=== PATIENT | female | born 1990 | race Caucasian/White ===

== ENCOUNTER 2022-12-08 12:33 | Emergency (ER) | payer OTHER, SELFPAY ==
[2022-12-08 12:35] VITALS: BP 105/59; PULSE 98; RESP 16; TEMP 36.7; O2SAT 100
--- NOTE | 2022-12-08 13:17 | ED.FEMALEGU ---
HPI - Female Genitourinary General Chief complaint: Urogenital-Female Stated complaint: hematuria Time Seen by Provider: 12/08/22 12:40 Source: patient Mode of arrival: ambulatory Limitations: no limitations History of Present Illness HPI Narrative: This is a 32-year-old female presents the ED with chief complaint of urinary frequency, dysuria, hematuria. Patient states that started this AM. She reports some suprapubic discomfort. She was concerned because she saw some blood clots in her urine. She denies any fevers, flank pain, nausea, vomiting, problems with bowel movements, vaginal discharge or bleeding. Related Data Home Medications Medication Instructions Recorded Confirmed bupropion HCl 150 mg 24 hr tablet, 150 mg PO QAM 11/25/21 11/25/21 extended release buspirone 10 mg tablet 10 mg PO BID 11/25/21 11/25/21 levonorgestrel 21 mcg/24 hours (8 1 device intrauterine ONCE 11/25/21 11/25/21 yrs) 52 mg intrauterine device (Mirena) Allergies Allergy/AdvReac Type Severity Reaction Status Date / Time No Known Allergies Allergy Mild Verified 12/08/22 12:55 Review of Systems Review of Systems: CONSTITUTIONAL: Denies fever, chills, or sweats. EYES: Denies visual changes, redness, or discharge. ENT: Denies rhinorrhea, congestion, sore throat, or otalgia. CARDIOVASCULAR: Denies chest pain, palpitations, or edema. RESPIRATORY: Denies cough or dyspnea. GASTROINTESTINAL: See HPI GENITOURINARY: See HPI SKIN: Denies rash or itching. MUSCULOSKELETAL: Denies back pain, joint pain, or myalgia. NEUROLOGIC: Denies headache, numbness, dizziness, or weakness. PSYCHIATRIC: Denies anxiety or depression. 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 Pleasant and conversational. Resting comfortably. HEAD: Normocephalic, atraumatic. EYES: PERRLA and EOMI. ENT: Nares clear, no rhinorrhea or epistaxis. Mucous membranes moist. Oropharynx without tonsillar hypertrophy exudate or other lesions. NECK: Supple. No adenopathy or masses. CHEST: No respiratory distress. Clear to auscultation. No wheezes rales or rhonchi HEART: Regular rate and rhythm. No murmur heard. Normal peripheral pulses. ABDOMEN: Negative flank tenderness bilaterally. Mild suprapubic discomfort with palpation. Soft, otherwise nontender, nondistended, normal active bowel sounds. MSK: Normal range of motion. No edema. SKIN: Warm, dry, no rash. NEURO: Alert and oriented x3. No focal deficits. PSYCH: Normal mood and affect. Course Vital Signs Vital signs: Vital Signs Temperature 98.1 F 12/08/22 12:35 Pulse Rate 98 12/08/22 12:35 Respiratory Rate 16 12/08/22 12:35 Blood Pressure 105/59 L 12/08/22 12:35 Pulse Oximetry 100 12/08/22 12:35 Temperature 98.1 F 12/08/22 12:35 Pulse Rate 98 12/08/22 12:35 Respiratory Rate 16 12/08/22 12:35 Blood Pressure 105/59 L 12/08/22 12:35 Pulse Oximetry 100 12/08/22 12:35
[2022-12-08 14:13] LABS: Appearance Urine Turbid (Clear); Bilirubin Urine Negative (Negative); Blood Urine 3+ (Negative); Color Urine Red (Yellow); Glucose Urine UA Negative (Negative); Ketones Urine Negative (Negative); Leukocyte Esterase Ur 1+ LEU/UL (Negative); Nitrate Urine Negative (Negative); Protein Urine 3+ mg/dL (Negative); Urobilinogen Urine 0.2 mg/dL (<2.0)
[2022-12-08 14:34] LABS: Bacteria Urine 3+ /hpf; Need Manual Microscopic Reviewed; Non Pathogenic Casts 0-2; RBC Urine >100 /hpf (0-2); Squamous Epithelial Cell Urine None seen /hpf (Few); WBC Urine >100 /hpf
[2022-12-08 14:39] LABS: Add Urine Microscopic? YES
== END 2022-12-08 14:37 | disposition home or self-care (01) ==
PROVIDERS: Emergency Provider Physician Assistant; PCP Family Medicine
DX: N39.0 Urinary tract infection, site not specified (principal); R31.9 Hematuria, unspecified; F41.9 Anxiety disorder, unspecified; F32.A Depression, unspecified; F17.290 Nicotine dependence, other tobacco product, uncomplicated; Z97.5 Presence of (intrauterine) contraceptive device
CPT/HCPCS: 81001; 81025; 87077; 87086; 87088; 87186; 99283